=== PATIENT | female | born 1965 | race Caucasian/White ===

== ENCOUNTER → 2019-06-20 | Day surgery (SDC) | payer OTHER ==
[~2019-06-20] MED LIST: ACETAMINOPHEN 325 MG TABLET PO PRN; ALBUTEROL SULFATE 2.5 MG/3 ML NEBU. NEB PRN; ATROPINE 0.5 MG/5 ML DISP.SYRIN. IV PRN; CHOL3000 PO; IV RINGERS SOLUTION,LACTATED 1,000 ML IV SCH; MULT-245 PO; ONDANSETRON PF 4 MG/2 ML VIAL. IV PRN; ONDANSETRON PF 4 MG/2 ML VIAL. ONE; PHENOL ORAL SPRAY 177ML BOTTLE. MM PRN; PROPOFOL 40 ML IV ONE; diphenhydrAMINE 50 MG/ML VIAL IV PRN
[2019-06-20 12:33] VITALS: BP 104/62
--- NOTE | 2019-06-22 14:07 | PATHOLOGY ---
[facility] Accession Number: [id number] . 01 Material submitted: . small bowel - SMALL BOWEL . 01 Clinical history: . None provided . 02 Diagnosis: Small bowel biopsies: - No significant pathologic abnormalities. (JPM:jessica; 06/22/2019) S 06/22/2019 0923 Local . 02 Comment: Sections of the small bowel biopsy reveal segments of small intestine mucosa containing a couple of mucosal associated lymphoid aggregates. Where best oriented, the mucosal villi show no sprue-like changes or significant inflammatory changes. (JPM:jessica; 06/22/2019) . 02 Electronically signed: . Olayinka Liu MD, Pathologist NPI- [id number] . 01 Gross description: . The specimen is received in formalin, labeled "Shelbi Tarik, small bowel biopsy, celiac". Received are two segments of pale adler soft tissue ranging in size from 0.3 to 0.4 cm in maximum dimensions. The specimen is submitted entirely in cassette A1. ([facility]; 06/21/2019) QA/QAC 06/21/2019 1758 Local . 02 Pathologist provided ICD-10: Z03.89 . 02 CPT . 145423 Specimen Comment: A courtesy copy of this report has been sent to [phone] Specimen Comment: [id number] Specimen Comment: Report sent to / DR RAMIREZ Performed at: 01 [facility] [address], [place] [id number] MD Kaden Juarez MD Phone: [phone] Performed at: 02 [facility] [address] [place], [place] [id number] MD Olayinka Liu MD Phone: [phone]
== END ==
LOC: SURG 10:02
PROVIDERS: ATTEND Emergency Medicine
DX: D50.9 Iron deficiency anemia, unspecified (principal); K31.89 Other diseases of stomach and duodenum; K64.8 Other hemorrhoids; K63.89 Other specified diseases of intestine; J45.909 Unspecified asthma, uncomplicated; Z90.710 Acquired absence of both cervix and uterus; Z98.84 Bariatric surgery status; Z72.89 Other problems related to lifestyle
CPT/HCPCS: 43239; 45378; 88305; J2405; J2704; J7120